=== PATIENT | female | born 1970 | race Caucasian/White ===

== ENCOUNTER 2025-05-25 13:00 | Emergency (ER) | payer BC ==
[~2025-05-25] VITALS: Ht 177.8 cm; Wt 117.7 kg
[2025-05-25 13:06] VITALS: BP 147/95; PULSE 101; TEMP 99.4; O2SAT 97
[2025-05-25 14:30] VITALS: RESP 18
[2025-05-25] MEDS: ketorolac trometh 30MG/ML vial 30 MG/ML VIAL IM ONE (14:30)
--- NOTE | 2025-05-25 14:44 | RADIOLOGY REPORT ---
Indication: KNEE PAIN Technique: DI KNEE, COMP 4 VW MINKNEE CMPT Comparison: None FINDINGS/IMPRESSION: No radiographic evidence for acute fracture or dislocation. [id number] tricompartmental degene rative joint disease. Small suprapatellar effusion.
--- NOTE | 2025-05-25 15:01 | Physician Documentation ---
History of Present Illness ~ Chief Complaint: Knee Pain Stated Complaint: KNEE PAIN Time Seen by MD: 13:39 HPI Patient is seen today with complaints of right-sided knee pain. Patient states she felt a pop in her right knee while trying to get into her truck and felt immediate pain and is barely able to bear any weight because of the pain in her right knee and states she could not extended Forde or fully flex the right knee without significant pain. Patient has has no other concern or complaint at this time. Tetanus witin 5 years: No Medication Reconciliation Allergies: Coded Allergies: No Known Allergies (Unverified , 05/25/25) Review of Systems Constitutional: Denies: chills, fever, weakness Eyes: Denies: pain, blurred vision ENT: Denies: ear pain, nose pain, throat pain, mouth pain Respiratory: Denies: cough, shortness of breath Cardiovascular: Denies: chest pain, palpitations Gastrointestinal: Denies: abdominal pain, nausea, vomiting Genitourinary: Denies: burning, dysuria Female Genitalia: Denies: vaginal discharge, pelvic pain Neurological: Denies: headache, dizziness Musculoskeletal: Denies: pain, swelling Integumentary: Denies: rash, lesions Allergic/Immunologic: Denies: hives, itching Hematologic/Lymphatic: Denies: no symptoms reported Psychiatric: Denies: depression, anxiety Physical Exam Vital Signs: Temperature: 99.4, Source: Temporal, Heart Rate: 101, Respiratory Rate: 16, BP: 147/95, Pulse Oximetry: 97, Weight: 117.730 Oxygen Flow Rate: 0 Physical Exam General: Awake and Alert, no acute distress. HEENT: Conjunctiva pink, Sclera clear, Mucus Membranes moist. Neck: Supple without masses and tenderness. Resp: Unlabored. Lungs clear to auscultation bilaterally. Heart: Regular Rate and rhythm, normal S1 and S2 without murmur, rub or gallop. Musculoskeletal: Patient on exam does have significant pain when trying to bear weight on the right lower extremity/right knee. Patient also has significant decreased range of motion of the right knee especially in flexion in his lacking about 15 of extension. Patient is neurovascularly intact distally. Motor function intact distally. Patient has tenderness to palpation in the posterior knee. Lissette's test is negative. Extremities: No cyanosis,clubbing or edema. Skin: Warm and Dry. Progress Results/Orders Results/Orders Completed Orders - BERNADETTE GU PAC Ibuprofen Tablet (Motrin Tablet) (05/25/25 14:20) Vital Signs 05/25/25 13:06 Temp 99.4 Pulse 101 Resp 16 B/P (MAP) 147/95 Pulse Ox 97 O2 Flow Rate 0 EKG/XRAY/CT/US/VASC/MRI Bone/Soft Tissue X-Ray (Ext.) : Additional Comment X-ray of right knee interpreted by myself today shows no sign of acute fracture, bones in anatomic alignment, evidence of degenerative joint disease. DIAGNOSTIC RADIOLOGY Patient: JESUS FLOWERS Medical Record: [id number] [facility] : 1970, Age: 55 Sex: Female Location: ER Patient Status: [facility] ER Service Date/Time: 05/25/251307 Ordering Physician: YUDY WEBSTER MD Exam: KNEE, COMP 4 VW MIN Indication: KNEE PAIN Technique: DI KNEE, COMP 4 VW MINKNEE CMPT Comparison: None FINDINGS/IMPRESSION: No radiographic evidence for acute fracture or dislocation. [id number] tricompartmental degenerative joint disease. Small suprapatellar effusion. Electronically Signed by:HECTOR JAMES MD Date & Time: 05/25/251442 Dictated by: HECTOR JAMES MD Dictation date and time: 05/25/251442 Primary Care Provider: NO PRIMARY CARE PROVIDER cc: YUDY WEBSTER MD ~ Medical Decision Making Findings Patient is seen today with complaints of right-sided knee pain. Patient states she felt a pop in her right knee while trying to get into her truck and felt immediate pain and is barely able to bear any weight because of the pain in her right knee and states she could not extended Forde or fully flex the right knee without significant pain. Patient has has no other concern or complaint at this time. Patient did have x-ray taken of right knee that shows no sign of acute fracture but does show mild degenerative joint disease. Patient will follow up with [facility] for referral to senior computer specialist as soon as possible for and for MRI. Patient will rest, ice, compress and elevate the right knee over the next 2-3 days. Patient will be toe-touch weight-bearing with crutches of the right lower extremity for one week. Return to ED with any worsening, concerning or changing symptoms. Patient was given Toradol 30 mg IM in the ED today. Patient will continue taking Tylenol and ibuprofen as needed for symptomatic relief. Departure Disposition: HOME / SELF CARE / HOMELESS Impression: Primary Impression: Knee pain Qualified Codes: M25.561 - Pain in right knee Condition: Improved Discharge Instructions: Acute Knee Pain, Adult Additional Instructions: Patient did have x-ray taken of right knee that shows no sign of acute fracture but does show mild degenerative joint disease. Patient will follow up with primary care for referral to senior computer specialist as soon as possible for and for MRI. Patient will rest, ice, compress and elevate the right knee over the next 2-3 days. Patient will be toe-touch weight-bearing with crutches of the right lower extremity for one week. Return to ED with any worsening, concerning or changing symptoms. Patient was given Toradol 30 mg IM in the ED today. Patient will continue taking Tylenol and ibuprofen as needed for symptomatic relief. Referrals: NO PRIMARY CARE PROVIDER (PCP) Signature Scribe Signature: No scribe Attestation: No scribe BERNADETTE GU May 25, 2025 15:01
== END 2025-05-25 15:11 | disposition home or self-care (01) ==
LOC: ER 13:01
DX: M25.561 Pain in right knee (principal)
CPT/HCPCS: 73564; 96372; 99283; J1885